=== PATIENT | female | born 1995 | race American Indian/Alaskan Native ===

== ENCOUNTER 2018-03-07 18:50 | Emergency (ER) | payer SELFPAY ==
[2018-03-07 19:00] VITALS: BP 112/44
--- NOTE | 2018-03-07 20:04 | Emergency Department Report ---
ED ENT HPI - General Chief complaint: Sore Throat Stated complaint: SWALLOWED METAL OBJECT Time Seen by Provider: 03/07/18 19:46 Source: patient, family Mode of arrival: Ambulatory Limitations: No Limitations - History of Present Illness Initial comments: Patient reports that she was eating an almost all the piece of metal but she was able to cough it back up and it came in its entirety. She says she just wants to get checked because her throat is scratchy. She denies any nausea or vomiting. Denies any difficulty breathing or sore throat. Denies any fever or chills. Denies any tongue injury. Denies any shortness of breath or chest pain. Denies any coughing up blood. Throat is scratchy 1 out of 10 intermittent. Tetanus vaccine is up-to-date. MD complaint: sore throat, foreign body, trauma/injury -: This evening Location: throat Severity: mild Severity scale (0 -10): 2 Quality: other (scartcy thoat) Consistency: intermittent Improves with: none Worsens with: swallowing Context- Dental: trauma Associated Symptoms: pain with swallowing. denies: fever, cough, gum swelling, toothache, sore throat, tinnitus, hearing loss, discharge from ear, rhinorrhea, other - Related Data Previous Rx's Medication Instructions Recorded Last Taken Type Cephalexin [Keflex] 500 mg PO Q8HR 7 Days #21 cap 03/07/18 Unknown Rx Ibuprofen [Motrin] 600 mg PO Q8H PRN #12 tablet 03/07/18 Unknown Rx Allergies Allergy/AdvReac Type Severity Reaction Status Date / Time No Known Allergies Allergy Unverified 03/07/18 18:57 ED Dental HPI - General Chief complaint: Sore Throat Stated complaint: SWALLOWED METAL OBJECT Time Seen by Provider: 03/07/18 19:46 Source: patient Mode of arrival: Ambulatory Limitations: No Limitations - Related Data Previous Rx's Medication Instructions Recorded Last Taken Type Cephalexin [Keflex] 500 mg PO Q8HR 7 Days #21 cap 03/07/18 Unknown Rx Ibuprofen [Motrin] 600 mg PO Q8H PRN #12 tablet 03/07/18 Unknown Rx Allergies Allergy/AdvReac Type Severity Reaction Status Date / Time No Known Allergies Allergy Unverified 03/07/18 18:57 ED Review of Systems ROS: Stated complaint: SWALLOWED METAL OBJECT Other details as noted in HPI Constitutional: denies: chills, fever Eyes: denies: eye pain, vision change ENT: denies: ear pain, throat pain, epistaxis, congestion Respiratory: denies: cough, orthopnea, shortness of breath, SOB with exertion, SOB at rest, stridor, wheezing Cardiovascular: denies: chest pain, palpitations, dyspnea on exertion, edema, syncope, paroxysmal nocturnal dyspnea Gastrointestinal: denies: abdominal pain, nausea, vomiting Musculoskeletal: denies: back pain, arthralgia Skin: denies: rash, lesions Neurological: denies: headache, weakness, paresthesias, abnormal gait Psychiatric: denies: anxiety ED Past Medical Hx - Past Medical History Previous Medical History?: No - Surgical History Past Surgical History?: No - Family History Family history: no significant - Social History Smoking Status: Never Smoker Substance Use Type: Alcohol - Medications Home Medications: Home Medications Medication Instructions Recorded Confirmed Last Taken Type Cephalexin [Keflex] 500 mg PO Q8HR 7 Days #21 cap 03/07/18 Unknown Rx Ibuprofen [Motrin] 600 mg PO Q8H PRN #12 tablet 03/07/18 Unknown Rx ED Physical Exam - General Limitations: No Limitations General appearance: alert, in no apparent distress - Head Head exam: Present: atraumatic, normocephalic, normal inspection - Eye Eye exam: Present: normal appearance, PERRL, EOMI. Absent: conjunctival injection Pupils: Present: normal accommodation - ENT ENT exam: Present: normal exam, normal orophraynx, mucous membranes moist, TM's normal bilaterally, normal external ear exam - Expanded ENT Exam Expanded Mouth exam: Present: normal external inspection, tongue normal Teeth exam: Present: normal inspection Throat exam: Positive: normal inspection, other (uvula midline and oral airway patent) - Neck Neck exam: Present: normal inspection, full ROM. Absent: tenderness, meningismus, lymphadenopathy, thyromegaly - Expanded Neck Exam Expanded Neck exam: Absent: tenderness, midline deformity, anterior neck swelling, tracheal deviation - Respiratory Respiratory exam: Present: normal lung sounds bilaterally. Absent: respiratory distress, wheezes, rales, rhonchi, stridor, chest wall tenderness, accessory muscle use, decreased breath sounds, prolonged expiratory - Cardiovascular Cardiovascular Exam: Present: regular rate, normal rhythm, normal heart sounds. Absent: systolic murmur, diastolic murmur - GI/Abdominal GI/Abdominal exam: Present: soft, normal bowel sounds. Absent: tenderness - Extremities Exam Extremities exam: Present: normal inspection, full ROM, normal capillary refill , other (No CCE. +2 pulses). Absent: tenderness, pedal edema, joint swelling, calf tenderness - Back Exam Back exam: Present: normal inspection - Neurological Exam Neurological exam: Present: alert, oriented X3, normal gait, reflexes normal. Absent: motor sensory deficit - Psychiatric Psychiatric exam: Present: normal affect, normal mood - Skin Skin exam: Present: warm, dry, intact, normal color. Absent: rash ED Course Vital Signs 03/07/18 18:58 Temperature 98.6 F Pulse Rate 60 Respiratory 18 Rate Blood Pressure 112/44 O2 Sat by Pulse 97 Oximetry - Reevaluation(s) Reevaluation #1: 03/07/18 21:01 Patient received posterior sleep 0.5 mls To update tetanus, Motrin and give milligram by mouth for pain and Keflex for her milligram empirically due to scratch to throat. ED Medical Decision Making - Medical Decision Making ED course This is a 22-year-old patient presents to emergency room report that she swallowed something metal, and she was able to get it back out, but in the process he scratched her throat and she has occasional pain with swallowing. Denies any difficulty swallowing or nausea or vomiting. Denies any cough, no blood, abdominal pain, difficulty breathing, chest pain or shortness of breath. She is here to be evaluated. She says she is worried. Tetanus shot is not up -to-date. Pt seen and evaluated by myself and found to have sore throat due to irritation by foreign body which was removed by patient. No laboratory or diagnostic tests needed. Patient oral exam was normal and she has no sign of respiratory distress on her neck is normal. I discussed further irritation is from probably scratching her throat while trying to get the foreign body out and that her airway is normal and her oxygen level is normal. Kessler pain. 2. Throat is better after medication. She was observed in emergency room and had no problem. She voiced understanding of diagnosis and she is able to tolerate oral fluids. 1: Sore throat- after swallowing foreign body and trying to get it out, which she did successfully. She was given Motrin 800 mg by mouth 1 dose and pain has been relieved and she will be discharged on Motrin 2:Foreign body injury to throat -removed foreign body herself. She states that she was able to cough it up. Tetanus vaccine updated. Patient given Keflex 500 mg by mouth emergency room empirically for infection. She will be discharged home on Keflex. Patient discharged home with prescription for Keflex and Motrin Educated on diagnosis, medication and treatment plan. I discussed with patient that he can gargle with some warm salt water to help with sore throat. Patient is stable and discharged home in stable condition as vital signs are stable and he is afebrile. He is nontoxic in appearance. Patient understands that he is to follow-up with his primary care and 2 days and if he doesn't have one he can follow-up with [facility]. She says she feels better and her pain is controlled and she is discharged home in stable condition. - Differential Diagnosis foreign body, strep throat, scratchy throat, upper respiratory, FB injury Critical care attestation.: If time is entered above; I have spent that time in minutes in the direct care of this critically ill patient, excluding procedure time. ED Disposition Clinical Impression: Puncture wound without foreign body of oral cavity, initial encounter, Sore throat Disposition: DC-01 TO HOME OR SELFCARE Is pt being admited?: No Does the pt Need Aspirin: No Condition: Stable Instructions: Puncture Wound (ED), Pharyngitis (ED) Additional Instructions: I explained to patient that if she develops closing of throat, swelling in the throat, difficulty speaking, hoarseness, swelling of neck and difficulty breathing, coughing, stridor or wheezes to return to the emergency ERIC otherwise follow up with her primary care physician in one to 2 days and if she does not have a primary care physician follow-up at [facility] Patient discharged home with prescription for Motrin and Keflex and I told her to take medication as prescribed. I also told her she needs to take Motrin with food as this can cause irritation to her stomach. Gargle with warm salt water and/or peroxide. You are taking antibiotic to prevent infection and Motrin to prevent swelling and inflammation Prescriptions: Cephalexin [Keflex] 500 mg PO Q8HR 7 Days #21 cap Ibuprofen [Motrin] 600 mg PO Q8H PRN #12 tablet PRN Reason: Pain Referrals: PRIMARY CARE, [Primary Care Provider] - 03/08/18 [facility] [Outside] - 03/08/18 Forms: Work/School Release Form(ED)
[2018-03-07] MEDS ORDERED: KEFLEX PO ONE (20:07)
[2018-03-07] MEDS ORDERED: BOOSTRIX IM ONE (20:07)
[2018-03-07] MEDS ORDERED: MOTRIN PO ONE (20:07)
== END 2018-03-07 22:00 | disposition home or self-care (01) ==
LOC: ED 18:50
DX: S01.532A Puncture wound without foreign body of oral cavity, initial encounter (principal); X58.XXXA Exposure to other specified factors, initial encounter; Y93.89 Activity, other specified; Y99.8 Other external cause status; Y92.89 Other specified places as the place of occurrence of the external cause
CPT/HCPCS: 90471; 90715; 99282

== ENCOUNTER 2018-10-12 18:03 | Emergency (ER) | payer MEDICAID ==
[2018-10-12 18:13] VITALS: BP 118/52
[2018-10-12 18:36] LABS: HCG Qualitative,Urine Positive (Negative)
[2018-10-12 18:39] LABS: Bilirubin,Urine NEG (Negative); Blood,Urine NEG (Negative); Color,Urine Yellow (Yellow); Mucus,Urine 3+ /HPF; Protein,Urine <15 mg/dL mg/dL (Negative)
[2018-10-12 19:41] LABS: Hematocrit 41.4 % (30.3-42.9); Hemoglobin 13.6 gm/dl (10.1-14.3); Mean Corpuscular HGB Conc 33 % (30-34); Mean Corpuscular Volume 88 fl (79-97); Platelet Count 283 K/mm3 (140-440); Red Blood Count 4.72 M/mm3 (3.65-5.03); Red Cell Distribution Width 13.3 % (13.2-15.2)
[2018-10-12 20:17] LABS: Alanine Aminotransferase 13 units/L (7-56); Albumin 4.3 g/dL (3.9-5); BUN/Creatinine Ratio 22; Blood Urea Nitrogen 13 mg/dL (7-17); Calcium 9.1 mg/dL (8.4-10.2); Hemolysis Index 0
--- NOTE | 2018-10-12 20:20 | Emergency Department Report ---
Vomiting/Diarrhea - HPI Chief Complaint: Abdominal Pain Stated Complaint: 5WKS VOMITING/ABD PAIN Duration: 3 Days Severity: moderate Nausea/Vomiting Severity: Moderate Diarrhea Severity: None Pain Location: LLQ Pain Severity: Moderate Symptoms: No Watery Diarrhea, No Bloody diarrhea, No Fever, No Able to Tolerate Fluids, No Recent Unusual Foods, No Recent Untreated Water, No Recent use of Antibiotics, No Family w/ Similar Symptoms, No Contacts w/ Similar Symptoms, No Rash, No Hematuria, No Recent URI Symptoms Other History: This is a 23 year-old female who presents with nausea, vomiting, and left pelvic pain for 3 days. Patient reports she is 5 weeks we'll have her first [facility] appointment October 19, 2018 with [facility] in [place]. Patient reports nausea and vomiting gets every 2-3 hours and eating and drinking. She also reports some mild back pain. She denies frequency, dysuria, urgency, chest pain, shortness of breath, dizziness, vaginal discharge, or vaginal bleeding. ED Review of Systems ROS: Stated complaint: 5WKS VOMITING/ABD PAIN Other details as noted in HPI Constitutional: denies: chills, fever Respiratory: denies: cough, shortness of breath, wheezing Cardiovascular: denies: chest pain, palpitations Gastrointestinal: abdominal pain, nausea, vomiting. denies: diarrhea Musculoskeletal: denies: back pain, joint swelling, arthralgia Skin: denies: rash, lesions Neurological: denies: headache, weakness, paresthesias Psychiatric: denies: anxiety, depression ED Past Medical Hx - Past Medical History Previous Medical History?: No - Surgical History Additional Surgical History: tumor removed lateral of right breast - Social History Smoking Status: Never Smoker - Medications Home Medications: Home Medications Medication Instructions Recorded Confirmed Last Taken Type Ibuprofen [Motrin] 600 mg PO Q8H PRN #12 tablet 03/07/18 Unknown Rx cephALEXin [Keflex] 500 mg PO Q8HR 7 Days #21 cap 03/07/18 Unknown Rx Ondansetron [Zofran Odt] 4 mg PO Q8HR PRN #20 tab.rapdis 10/12/18 Unknown Rx 21/Iron Fu/Folic Acid 1 each PO DAILY #30 tablet 10/12/18 Unknown Rx [ Complete Caplet] Vomiting Diarrhea Exam - Exam General: Vital signs noted. No distress. Alert and acting appropriately. HEENT: Yes Moist Mucous Membranes, No Pharyngeal Erythema, No Pharyngeal Exuda tarik, No Rhinorrhea, No Conjuctival Injection, No Frontal Tenderness, No Maxillary Tenderness Neck: No Adenopathy, No Rigidity Lungs: Yes Clear Lung Sounds, Yes Good Air Exchange, No Wheezes, No Stridor, No Cough, No Nasal Flaring, No Retractions, No Use of Accessory Muscles Heart exam: Regular: Yes, Murmur: No, Tachycardia: No Abdomen: Tenderness: Yes (left lower quadrant), Peritoneal Signs: No, D istention: No, Hyperactive Bowel sounds: No Skin exam: Rash: No, Edema: No, Normal turgor: Yes Neurologic: Alert and oriented, no deficits. Musculoskeletal: Unremarkable. ED Course Vital Signs 10/12/18 18:09 Temperature 99.0 F Pulse Rate 73 Respiratory 16 Rate Blood Pressure 118/52 O2 Sat by Pulse 98 Oximetry ED Medical Decision Making - Lab Data Result diagrams: 10/12/18 19:31 10/12/18 19:31 Lab Results 10/12/18 10/12/18 10/12/18 Range/Units 18:24 19:31 19:31 WBC 12.0 H (4.5-11.0) K/mm3 RBC 4.72 (3.65-5.03) M/mm3 Hgb 13.6 (10.1-14.3) gm/dl Hct 41.4 (30.3-42.9) % MCV 88 (79-97) fl MCH 29 (28-32) pg MCHC 33 (30-34) % RDW 13.3 (13.2-15.2) % Plt Count 283 (140-440) K/mm3 Sodium 137 (137-145) mmol/L Potassium 3.7 (3.6-5.0) mmol/L Chloride 98.2 (98-107) mmol/L Carbon Dioxide 26 (22-30) mmol/L Anion Gap 17 mmol/L BUN 13 (7-17) mg/dL Creatinine 0.6 L (0.7-1.2) mg/dL Estimated GFR > 60 ml/min BUN/Creatinine Ratio 22 % Glucose 99 (65-100) mg/dL Calcium 9.1 (8.4-10.2) mg/dL Total Bilirubin 0.20 (0.1-1.2) mg/dL AST 17 (5-40) units/L ALT 13 (7-56) units/L Alkaline Phosphatase 81 (35-129) units/L Total Protein 7.3 (6.3-8.2) g/dL Albumin 4.3 (3.9-5) g/dL Albumin/Globulin Ratio 1.4 % HCG, Quant (0-4) mIU/mL Urine Color Yellow (Yellow) Urine Turbidity Cloudy (Clear) Urine pH 5.0 (5.0-7.0) Ur Specific [place] 1.025 (1.003-1.030) Urine Protein <15 mg/dl (Negative) mg/dL Urine Glucose (UA) Neg (Negative) mg/dL Urine Ketones Tr (Negative) mg/dL Urine Blood Neg (Negative) Urine Nitrite Neg (Negative) Ur Reducing Substances Not Reportable Urine Bilirubin Neg (Negative) Urine Ictotest Not Reportable Urine Urobilinogen 2.0 (<2.0) mg/dL Ur Leukocyte Esterase Sm (Negative) Urine WBC (Auto) 8.0 H (0.0-6.0) /HPF Urine RBC (Auto) 8.0 (0.0-6.0) /HPF U Epithel Cells (Auto) 67.0 H (0-13.0) /HPF Urine Mucus 3+ /HPF Urine Yeast (Budding) 1+ /HPF Urine HCG, Qual Positive A (Negative) Blood Type 10/12/18 10/12/18 Range/Units 19:31 19:31 WBC (4.5-11.0) K/mm3 RBC (3.65-5.03) M/mm3 Hgb (10.1-14.3) gm/dl Hct (30.3-42.9) % MCV (79-97) fl MCH (28-32) pg MCHC (30-34) % RDW (13.2-15.2) % Plt Count (140-440) K/mm3 Sodium (137-145) mmol/L Potassium (3.6-5.0) mmol/L Chloride (98-107) mmol/L Carbon Dioxide (22-30) mmol/L Anion Gap mmol/L BUN (7-17) mg/dL Creatinine (0.7-1.2) mg/dL Estimated GFR ml/min BUN/Creatinine Ratio % Glucose (65-100) mg/dL Calcium (8.4-10.2) mg/dL Total Bilirubin (0.1-1.2) mg/dL AST (5-40) units/L ALT (7-56) units/L Alkaline Phosphatase (35-129) units/L Total Protein (6.3-8.2) g/dL Albumin (3.9-5) g/dL Albumin/Globulin Ratio % HCG, Quant 23002 H (0-4) mIU/mL Urine Color (Yellow) Urine Turbidity (Clear) Urine pH (5.0-7.0) Ur Specific [place] (1.003-1.030) Urine Protein (Negative) mg/dL Urine Glucose (UA) (Negative) mg/dL Urine Ketones (Negative) mg/dL Urine Blood (Negative) Urine Nitrite (Negative) Ur Reducing Substances Urine Bilirubin (Negative) Urine Ictotest Urine Urobilinogen (<2.0) mg/dL Ur Leukocyte Esterase (Negative) Urine WBC (Auto) (0.0-6.0) /HPF Urine RBC (Auto) (0.0-6.0) /HPF U Epithel Cells (Auto) (0-13.0) /HPF Urine Mucus /HPF Urine Yeast (Budding) /HPF Urine HCG, Qual (Negative) Blood Type A POSITIVE - Radiology Data Radiology results: report reviewed FINAL REPORT PROCEDURE: US OB TRANSVAGINAL TECHNIQUE: Real-time transvaginal sonography of the uterus, placenta, amniotic fluid, adnexa, and fetus was performed with image documentation. Measurements were obtained to determine age/size. M-mode Doppler was used to document heartbeat. CPT 47702 HISTORY: rlq pain COMPARISON: No prior studies are available for comparison. FINDINGS: CRL: 5.8 mm, which corresponds to a gestational age of: 6 weeks, 3 days. Yolk Sac: Normal. Embryonic Cardiac Activity: 120 beats per minute Gestational Sac: Normal. Amniotic fluid: Normal. Right Ovary: 2.4 x 2.9 x 3.6 centimeters with normal echotexture. Left Ovary: 1.3 x 2.6 x 2.0 centimeters with normal echotexture Estimated delivery date: 06/04/2019 Uterus and adnexa: Uterus is retroverted IMPRESSION: Single live intrauterine gestation at approximately 6 weeks and 3 days. EDC by US 06/04/2019 The uterus is retroverted - Medical Decision Making This is a 23 y.o. female presents with pelvic left pelvic pain, nausea, and vomiting. Patient was examined by me. Vitals are normal and patient is in no acute distress. Obtained a urinalysis, CBC, CMP, urine hCG, hCG quant, and OB u ltrasound. Quant [id number] all other labs unremarkable. Single live intrauterine gestation at approximately 6 weeks and 3 days. EDC by US 06/04/2019. The uterus is retroverted. Patient instructed to follow up with [facility] [facility]. Start complete and Zofran. Patient discharged home in stable condition. Critical care attestation.: If time is entered above; I have spent that time in minutes in the direct care of this critically ill patient, excluding procedure time. ED Disposition Clinical Impression: Nausea and vomiting during , Threatened miscarriage in early , Abdominal pain affecting Disposition: - TO HOME OR SELFCARE Is pt being admited?: No Does the pt Need Aspirin: No Condition: Stable Instructions: Threatened Miscarriage (ED), Acute Nausea and Vomiting (ED), Morning Sickness (ED) Additional Instructions: Follow-up with your [facility]. Prescriptions: Ondansetron [Zofran Odt] 4 mg PO Q8HR PRN #20 tab.rapdis PRN Reason: Nausea And Vomiting 21/Iron Fu/Folic Acid [ Complete Caplet] 1 each PO DAILY #30 tablet Referrals: SHIRLEY AQUINO MD [Primary Care Provider] - 3-5 Days [facility] [Provider Group] - 3-5 Days [facility] [Provider Group] - 3-5 Days [facility] [Provider Group] - 3-5 Days Forms: Work/School Release Form(ED) Time of Disposition: 21:07
--- NOTE | 2018-10-12 20:40 | Ultrasound Report ---
FINAL REPORT PROCEDURE: US OB TRANSVAGINAL TECHNIQUE: Real-time transvaginal sonography of the uterus, placenta, amniotic fluid, adnexa, and fe tus was performed with image documentation. Measurements were obtained to determine age/size. M -mode Doppler was used to document heartbeat. CPT 14514 HISTORY: rlq pain COMPARISON: No prior studies are available for comparison. FINDINGS: CRL: 5.8 mm, which corresponds to a gestational age of: 6 weeks, 3 days. Yolk Sac: Normal. Embryonic Cardiac Activity: 120 beats per minute Gestational Sac: Normal. Amniotic fluid: Normal. Right Ovary: 2.4 x 2.9 x 3.6 centimeters with normal echotexture. Left Ovary: 1.3 x 2.6 x 2.0 centimeters with normal echotexture Estimated delivery date: 06/04/2019 Uterus and adnexa: Uterus is retroverted IMPRESSION: Single live intrauterine gestation at approximately 6 weeks and 3 days. EDC by US 06/04/2019 The uterus is retroverted
--- NOTE | 2018-10-12 20:40 | Ultrasound Report ---
FINAL REPORT PROCEDURE: US OB <= 14 WEEKS FETUS TECHNIQUE: Real-time transabdominal sonography of the uterus, placenta, amniotic fluid, adnexa, and fetus was performed with image documentation. Measurements were obtained to determine age/size. M-mode Doppler was used to document heartbeat. CPT 37806 HISTORY: rlq pain COMPARISON: No prior studies are available for comparison. FINDINGS: CRL: 5.8 mm, which corresponds to a gestational age of: 6 weeks, 3 days. Yolk Sac: Normal. Embryonic Cardiac Activity: 120 beats per minute Gestational Sac: Normal. Amniotic fluid: Normal. Right Ovary: 2.4 x 2.9 x 3.6 centimeters with normal echotexture. Left Ovary: 1.3 x 2.6 x 2.0 centimeters with normal echotexture Estimated delivery date: 06/04/2019 Uterus and adnexa: Uterus is retroverted IMPRESSION: Single live intrauterine gestation at approximately 6 weeks and 3 days. EDC by US 06/04/2019 The uterus is retroverted
== END 2018-10-12 21:15 | disposition home or self-care (01) ==
LOC: ED 18:03
DX: O20.0 Threatened abortion (principal); O21.8 Other vomiting complicating pregnancy; Z3A.01 Less than 8 weeks gestation of pregnancy
CPT/HCPCS: 36415; 76801; 76817; 80053; 81001; 81025; 84702; 85027; 86900; 86901